=== PATIENT | male | born 1995 | race Caucasian/White ===

== ENCOUNTER 2019-08-11 02:14 | Emergency (ER) | payer OTHER ==
[~2019-08-11] VITALS: Ht 175.3 cm; Wt 84.1 kg
[2019-08-11 06:39] VITALS: BP 126/56
--- NOTE | 2019-08-11 08:10 | REP ---
Clinical: Trauma. Technique: AP, lateral, bilateral oblique views right hand . Findings: The osseous structures and joint spaces are intact and normal. There is no evidence for acute fracture or dislocation. Surrounding soft tissues are unremarkable. No subcutaneous emphysema or radiodense foreign body. Impression: Normal right hand series . No acute fracture or dislocation. Electronically Signed by Dharmesh Kelley MD 08/11/2019 08:01 A
== END 2019-08-11 06:52 | disposition home or self-care (01) ==
LOC: M ED 02:14
DX: M79.641 Pain in right hand (principal)